=== PATIENT | female | born 1995 | race Two or more races ===

== ENCOUNTER 2017-08-18 17:55 | Emergency (ER) | payer OTHER ==
[~2017-08-18] VITALS: Ht 160 cm; Wt 63.5 kg
[2017-08-18 18:03] VITALS: BP 122/74; Ht 160 cm; Wt 63.5 kg
== END 2017-08-18 19:02 | disposition home or self-care (01) ==
LOC: ED 17:55
DX: O26.891 Other specified pregnancy related conditions, first trimester (principal); S39.91XA Unspecified injury of abdomen, initial encounter; R10.13 Epigastric pain; F03.90 Unspecified dementia, unspecified severity, without behavioral disturbance, psychotic disturbance, mood disturbance, and anxiety; Z3A.01 Less than 8 weeks gestation of pregnancy; Y04.8XXA Assault by other bodily force, initial encounter